=== PATIENT | female | born 1965 | race Caucasian/White ===

== ENCOUNTER → 2019-07-17 | Outpatient (CLI) | payer BC ==
--- NOTE | 2019-07-17 22:37 | CONS ---
CONSULTATION DATE OF SERVICE: 07/17/2019 53-year-old lady who has been evaluated in the sleep center for possible obstructive sleep apnea-hypopnea syndrome. HISTORY OF PRESENT ILLNESS SLEEP WAKE EVALUATION: SLEEP SCHEDULE: Patient's usual sleep schedule on working days from 9:30 pm to 6 to 6:30 a.m. and on weekends from 10 p.m. until 8 to 8:30 a.m. FALLING ASLEEP: No problems with falling asleep, although she has TV set in bedroom. DURING SLEEP: She usually sleeps on the side position with her . According to him, she has loud snoring and episodes of stopped breathing during sleep. The patient wakes up from sleep with episodes of gasping for air, restless legs, palpitations up to 3 times per night with up with 1 episode of nocturia. She may breathe through her mouth during sleep and she may wake up with dryness in her mouth. No history of hypnagogic hallucinations, sleep paralysis or cataplexy. DURING THE DAY/SLEEP WAKE EVALUATION: Patient may have difficulties to pay tension, may have problems with memory concentration, depression and anxiety. Te patient feels sleepy during the day. [place] Sleepiness Scale significantly increased to 15. She may take naps around 2:00 pm of she has time for that. She usually feels refreshed after naps she may see vivid dreams during naps. The patient increased her weight around 20 pounds for the last 5 years. PAST MEDICAL HISTORY: Positive for hypothyroidism, anxiety, venous problems, problems with superficial veins of her legs. Thrombosis of superficial legs, hypothyroidism. The patient referred short most of her sleep problem with increasing snoring since she started her menopause about 5 years ago. PAST SURGICAL HISTORY: Status post surgery on superficial veins of her both legs in 1998. MEDICATIONS: Synthroid 75 mcg, Celexa 20 mg once a day. REVIEW OF SYSTEMS: SOCIAL HISTORY: Positive for smoking less than 1 pack a day for about 10 years, quit about 25 years ago. Alcohol consumption occasional. FAMILY HISTORY: Heart problems, stroke, arthritis, sleep apnea, snoring, lung problems, cancer, thyroid problems. PHYSICAL EXAM: lady without distress. BP 102/69, HR 55 or RR 12, height 5 feet 8 inches, weight 192.8 pounds, body mass index 29.1, temperature 98.3, oxygen saturation at room air 100%. Oropharynx retrognathia 2 mm, moderately low position of soft palate, Mallampati 2-3. Some restriction of nasal breathing. Neck 14 inches in circumference. HEENT: [place], EOMI, evaluation of oropharynx showed tongue protrudes midline. NECK: Supple, no JVD. Thyroid is not palpable. LUNGS: Clear to percussion and to auscultation. Good air exchange. No wheezing or rhonchi. HEART: S1, S2 regular. No murmurs, gallops, or rubs. ABDOMEN: Soft and nontender. Bowel sounds are present. No organomegaly appreciated. EXTREMITIES: No clubbing or cyanosis. MOBILE UI DESIGNER: Awake, alert, and oriented X3. Cranial nerves 2 to 7 intact. There is no fasciculation or atrophy. noted. No focal deficits observed. IMPRESSION: 1. Snoring, witnessed episodes of stopped breathing during the sleep. Awakenings with gasping for air and dry mouth, some restriction of nasal breathing, significant excessive daytime sleepiness. [place] Sleepiness Scale is 15. Obstructive sleep apnea-hypopnea syndrome. 2. Hypothyroidism. 3. History of anxiety. 4. 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 5. History of surgical treatment of veins thrombophlebitis. 6. Menopause for about 5 years. PLAN: 1. Home sleep apnea test for evaluation of patient's breathing during sleep. 2. CPAP/BiPAP titration if sleep study confirms obstructive sleep apnea-hypopnea syndrome. 3. Preferable position during sleep on the side. 4. No driving if patient feels any sleepiness. 5. I will see patient for follow up visit to explain results of testing and following plan. Thank you very much for referring this patient for consultation. Sincerely, Daryn Huffman MD, PhD, FAASM Diplomat of [employer] Food Safety Specialist of [facility] MMODL / IJN: [id number] /
== END | disposition home or self-care (01) ==
LOC: SLEEP 14:58
PROVIDERS: ATTEND Internal Medicine
DX: G47.33 Obstructive sleep apnea (adult) (pediatric) (principal); E03.9 Hypothyroidism, unspecified; Z78.0 Asymptomatic menopausal state; Z86.59 Personal history of other mental and behavioral disorders; Z79.890 Hormone replacement therapy; Z79.899 Other long term (current) drug therapy; Z86.72 Personal history of thrombophlebitis
CPT/HCPCS: 99211

== ENCOUNTER → 2024-10-10 | Outpatient (CLI) | payer BC ==
--- NOTE | 2024-10-10 12:31 | CA ---
Exercise Stress Test Report Name: Farheen Junior Exam Date: 10/10/2024 08:26 Exam Location: [place] Stress Ht (in): 69 Wt (lb): 210 BSA: 2.11 Ordering Phys: Amadeo Pastrana MD Referring Phys: Arelis Anthony Technologist: BIANCA DALLAS Age: 58 Gender: F : 1965 Procedure CPT: Indications: R00.0 TACHYCARDIA F43.9 REACTION TO SEVERE STRESS ICD-10 Codes: Patient History: PALP, FAMILY HX. Medications: Meds past 24 hrs: Pretest Chest Pain: STRESS TEST Randell Protocol Exercise Duration (min:sec): 08:[address] Depressions (mm): Angina Score: Ca Score: Resting HR (bpm): 77 Peak HR (bpm): 157 Resting BP (mmHg): 110 / 85 Peak BP (mmHg): 225 / 108 MPHR: 160 Target HR: 136 % MPHR: 98 METS: 10.3 Total Dose: Peak Dose: Atropine: Double Product: 50901 BP Response: Stress Termination: TARGET HR REACHED/MAX EXERTION Stress Symptoms: PALPATATIONS Stress Summary: ECG ANALYSIS Resting ECG: Normal sinus rhythm heart rate 65 beats minute, normal axis. Stress ECG: No significant ST-T wave changes that are diagnostic for ischemia. No significant arrhythmia or ectopic beats noticed during the stress test. CONCLUSIONS Good exercise tolerance achieving 10.3 METS Hypertensive response to exercise. Normal clinical response Nonischemic ECG response to treadmill exercise Overall nonischemic treadmill stress test. Recommend monitoring blood pressure. Dr aMrcellus Taylor (Electronically Signed) Final Date: 10 October 2024 12:31
== END | disposition home or self-care (01) ==
LOC: RADNMMAIN 08:09
PROVIDERS: ATTEND Family Medicine
DX: R00.0 Tachycardia, unspecified (principal); F43.9 Reaction to severe stress, unspecified; I10 Essential (primary) hypertension
CPT/HCPCS: 93017